=== PATIENT | female | born 1975 | race American Indian/Alaskan Native ===

== ENCOUNTER 2019-07-25 06:16 | Emergency (ER) | payer SELFPAY ==
[2019-07-25 06:25] VITALS: BP 152/105
== END 2019-07-25 10:10 | disposition left against medical advice (07) ==
LOC: ED 06:16
DX: S01.91XA Laceration without foreign body of unspecified part of head, initial encounter (principal); Z53.21 Procedure and treatment not carried out due to patient leaving prior to being seen by health care provider; X58.XXXA Exposure to other specified factors, initial encounter; Y93.89 Activity, other specified; Y92.89 Other specified places as the place of occurrence of the external cause; Y99.8 Other external cause status

== ENCOUNTER 2019-07-25 15:26 | Emergency (ER) | payer SELFPAY ==
[2019-07-25 16:16] VITALS: BP 148/88
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
[2019-07-25] MEDS ORDERED: ACETAMINOPHEN 325 MG TAB PO ONE (18:02)
[2019-07-25] MEDS ORDERED: ACETAMINOPHEN 325 MG TAB ONE (18:02)
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
[2019-07-25] MEDS ORDERED: NEOMY 3.5 MG/BACIT 400 UNITS/POLY B 5000 UNITS/GM OINT PACKET TP ONE (19:16)
== END 2019-07-25 19:36 | disposition home or self-care (01) ==
LOC: ED 15:26
DX: S01.01XA Laceration without foreign body of scalp, initial encounter (principal); F17.200 Nicotine dependence, unspecified, uncomplicated; Z98.51 Tubal ligation status; Z79.899 Other long term (current) drug therapy; Y04.8XXA Assault by other bodily force, initial encounter; Y93.89 Activity, other specified; Y92.89 Other specified places as the place of occurrence of the external cause; Y99.8 Other external cause status
CPT/HCPCS: 70450; 99283; A6250